=== PATIENT | male | born 1965 | race Caucasian/White ===

== ENCOUNTER 2018-06-10 20:05 | Emergency (ER) | payer BC ==
[2018-06-10 20:34] VITALS: BP 126/78; PULSE 67; TEMP 98.4; BMI 30.6
--- NOTE | 2018-06-10 20:36 | PDOC ---
History of Present Illness - General History Source: Patient Exam Limitations: No Limitations - History of Present Illness Initial Comments: 06/10/18 22:21 Patient is a 52 year old male with a significant past medical history of Type 2 diabetes. who presents to the ED with complaints of diarrhea, that began x3 weeks ago. Patient reports experiencing sudden diarrhea, while in [place] x3 weeks ago. He reports seeing physician in [place] and was prescribed antibiotics and probiotics with minimal relief. Patient reports calling his PCP when he returned to the [facility] who advised him to take imodium and pepto bismol and to go to the ED if the diarrhea began to increase in severity. He reports experiencing slight relief for x1 week, but [facility] symptoms returned sunday evening and sunday morning stating he began to experience x5 episodes of diarrhea per day, prompting him to come into the ED for further evaluation. Patient reports experiencing associated symptoms of abdominal pain and increased thirst, secondary to diarrhea. Denies chest pain, sob. Denies nausea, vomiting. Denies contact with sick individuals, out of state travelling. . Denies dysuria, hematuria, Denies constipation. Denies any other symptoms. Allergies: NKDA Social history: Lives with . No smoking. No alcohol. No illicit drugs. Surgical history: Colonoscopy PMD: Dr. Morejon <Yimi Ross - Last Filed: 06/10/18 22:21> <Ca Harman - Last Filed: 06/11/18 03:46> - General Chief Complaint: Diarrhea Stated Complaint: DIARRHEA X 2 WEEKS Time Seen by Provider: 06/10/18 20:08 Past History <Yimi Ross - Last Filed: 06/10/18 22:21> - Past Medical History Diabetes: Yes Kidney Stones: Yes - Suicide/Smoking/Psychosocial Hx Smoking History: Never smoked Hx Alcohol Use: Yes (social) Drug/Substance Use Hx: No <Ca Harman - Last Filed: 06/11/18 03:46> - Past Medical History Allergies/Adverse Reactions: Allergies Allergy/AdvReac Type Severity Reaction Status Date / Time No Known Allergies Allergy Verified 06/10/18 20:08 Home Medications: Ambulatory Orders Enalapril Maleate [Vasotec -] 2.5 mg PO DAILY 07/12/14 Linagliptin/Metformin HCl [Jentadueto 2.5 mg-1000 mg Tab] 1 each PO DAILY 10/19/ 14 Nateglinide [Starlix (Nf) -] 120 mg PO TID 07/12/14 Dapagliflozin Propanediol [Farxiga] 5 mg PO DAILY 06/10/18 Metformin HCl [Metformin HCl ER] 500 mg PO DAILY 06/10/18 Review of Systems - Review of Systems Able to Perform ROS?: Yes Comments:: 06/10/18 22:21 GENERAL/CONSTITUTIONAL: No fever or chills. No weakness. HEAD, EYES, EARS, NOSE AND THROAT: No change in vision. No ear pain or discharge. No sore throat. CARDIOVASCULAR: No chest pain or shortness of breath. RESPIRATORY: No cough, wheezing, or hemoptysis. GASTROINTESTINAL: +diarrhea. No nausea, vomiting, or constipation. GENITOURINARY: No dysuria, frequency, or change in urination. MUSCULOSKELETAL: No joint or muscle swelling or pain. No neck or back pain. SKIN: No rash NEUROLOGIC: No headache, vertigo, loss of consciousness, or change in strength/ sensation. ENDOCRINE: No increased thirst. No abnormal weight change. HEMATOLOGIC/LYMPHATIC: No anemia, easy bleeding, or history of blood clots. ALLERGIC/IMMUNOLOGIC: No hives or skin allergy. <Yimi Ross - Last Filed: 06/10/18 22:21> *Physical Exam - Vital Signs Last Vital Signs Temp Pulse Resp BP Pulse Ox 98.4 F 67 16 126/78 99 06/10/18 20:31 06/10/18 20:31 06/10/18 20:31 06/10/18 20:31 06/10/18 20:31 - Physical Exam Comments: 06/10/18 22:21 GENERAL: Awake, alert, and fully oriented, in no acute distress HEAD: No signs of trauma EYES: PERRLA, EOMI, sclera anicteric, conjunctiva clear ENT: Auricles normal inspection, hearing grossly normal, nares patent, oropharynx clear without exudates. Moist mucosa NECK: Normal ROM, supple, no lymphadenopathy, JVD, or masses LUNGS: Breath sounds equal, clear to auscultation bilaterally. No wheezes, and no crackles HEART: Regular rate and rhythm, normal S1 and S2, no murmurs, rubs or gallops ABDOMEN: +Mild RLQ tenderness. Soft, normoactive bowel sounds. No guarding, no rebound. No masses EXTREMITIES: Normal range of motion, no edema. No clubbing or cyanosis. No cords, erythema, or tenderness NEUROLOGICAL: Cranial nerves II through XII grossly intact. Normal speech, normal gait SKIN: Warm, Dry, normal turgor, no rashes or lesions noted. <Yimi Ross - Last Filed: 06/10/18 22:21> ED Treatment Course - LABORATORY CBC & Chemistry Diagram: 06/10/18 20:40 06/10/18 20:40 - ADDITIONAL ORDERS Additional order review: Laboratory Results 06/10/18 06/10/18 21:10 20:40 Sodium 139 Potassium 4.4 Chloride 102 Carbon Dioxide 28 Anion Gap 9 BUN 20 H Creatinine 0.9 Creat Clearance w eGFR > 60 Random Glucose 154 H D Calcium 8.5 Total Bilirubin 0.5 AST 18 D ALT 22 D Alkaline Phosphatase 80 Total Protein 6.8 Albumin 3.6 Urine Color Yellow Urine Appearance Clear Urine pH 5.5 Ur Specific [place] 1.025 Urine Protein Negative Urine Glucose (UA) 3+ H Urine Ketones Negative Urine Blood Negative Urine Nitrite Negative Urine Bilirubin Negative Urine Urobilinogen 0.2 Ur Leukocyte Esterase Negative 06/10/18 20:40 RBC 4.69 MCV 81.8 MCHC 32.6 RDW 12.9 MPV 8.1 Neutrophils % 33.7 L D Lymphocytes % 56.7 H D Monocytes % 6.6 Eosinophils % 2.2 Basophils % 0.8 - Medications Given in the ED: ED Medications Discontinued Medications Generic Name Dose Route Start Last Admin Trade Name Freq PRN Reason Stop Dose Admin Sodium Chloride 1,000 mls @ 1,000 mls/hr 06/10/18 21:02 06/10/18 21:13 Normal Saline - IV 06/10/18 22:01 1,000 mls/hr ASDIR STA Administration <Yimi Ross - Last Filed: 06/10/18 22:21> - LABORATORY CBC & Chemistry Diagram: 06/10/18 20:40 06/10/18 20:40 <Ca Harman - Last Filed: 06/11/18 03:46> Progress Note - Progress Note Progress Note: Documentation has been prepared under my direction and personally reviewed by me in its entirety. I attest that this documented accurately reflects all work, treatment, procedures and medical decision making performed by me. <Ca Harman - Last Filed: 06/11/18 03:46> Medical Decision Making - Medical Decision Making As noted above, this 52-year-old man presents with a few week history of diarrhea; illness began when he was visiting [place] last month. After initial improvement, he had recurrence over the last few days. Today, he had only 2 loose stools but came to the emergency room because of the recurrence of the diarrhea and persistence of lower abdominal pain. Exam as noted with mild right lower quadrant tenderness without peritoneal signs. Patient was advised to come to the emergency room if he had recurrence of the diarrhea so that further workup, including CT, could be performed. Laboratory evaluation is essentially normal except for mild prerenal azotemia. There is no elevation of white blood cell count and electrolyte levels are normal. Because of the right lower quadrant tenderness, abdominal/pelvic CT was performed to rule out acute appendicitis. CT interpreted by Dr. Landon of the radiology staff: No evidence of acute appendicitis. However, there is generalized intra-abdominal lymph node enlargement especially within the right lower quadrant and central mesentery. There is also development of splenomegaly. Although the these findings may be reactive secondary to present illness, these findings are suspicious for lymphoma. Call was placed to Dr. Kunal Morejon but answering service stated that he was signed out to [facility] hospitalist service. Since there was no need for hospitalization in this patient who is neither dehydrated/vomiting or in significant pain, [facility] hospitalist service was not called and patient was advised strongly to follow up within the very near future with Dr. Morejon. <Ca Harman - Last Filed: 06/11/18 03:46> *DC/Admit/Observation/Transfer - Attestations Scribe Attestion: 06/10/18 22:22 Documentation prepared by Yimi Ross, acting as medical appointment scheduler for Ca Harman MD. <Yimi Ross - Last Filed: 06/10/18 22:21> <Ca Harman - Last Filed: 06/11/18 03:46> Diagnosis at time of Disposition: Diarrhea Qualifiers: Diarrhea type: unspecified type Qualified Code(s): R19.7 - Diarrhea, unspecified - Discharge Dispostion Disposition: HOME Condition at time of disposition: Stable - Referrals Referrals: Kunal Morejon MD [Primary Care Provider] - Call tomorrow - Patient Instructions Printed Discharge Instructions: Diarrhea Additional Instructions: Continue drinking plenty of fluids as discussed Continue Pepto-Bismol or Imodium as needed after each loose stool Avoid lactose containing products Call tomorrow as discussed Return to ER if you have worsening pain/vomiting/fever - Post Discharge Activity
[2018-06-10 20:53] LABS: BASO % 0.8 % (0-2.0); EOS % 2.2 % (0-4.5); HEMATOCRIT 38.3 % (35.4-49); HEMOGLOBIN 12.5 GM/dl (11.7-16.9); LYMPH % 56.7 % (8-40); MCH 26.7 pg (25.7-33.7); MCHC 32.6 g/dl (32.0-35.9); MEAN CELL VOLUME 81.8 fl (80-96); MEAN PLT VOLUME 8.1 fl (7.5-11.1); MONO % 6.6 % (3.8-10.2); NEUT % 33.7 % (42.8-82.8); PLATELET COUNT 174 K/MM3 (134-434); RBC 4.69 M/mm3 (4.00-5.60); RDW 12.9 % (11.9-15.9); WHITE BLOOD COUNT 7.3 K/mm3 (4.0-10.8)
[2018-06-10 21:01] LABS: ALBUMIN 3.6 g/dl (3.5-5.0); ALK PHOS 80 U/L (32-92); ANION GAP 9 MMOL/L (8-16); BILIRUBIN,TOTAL 0.5 mg/dl (0.2-1.0); BLOOD UREA NITROGEN 20 mg/dl (7-18); CALCIUM 8.5 mg/dl (8.4-10.2); CHLORIDE 102 mmol/L (98-107); CO2 28 mmol/L (22-28); CREATININE 0.9 mg/dl (0.6-1.3); GLUCOSE,RANDOM 154 mg/dl (74-106); POTASSIUM 4.4 mmol/L (3.5-5.1); SGOT/AST 18 U/L (10-42); SGPT/ALT 22 U/L (10-40); SODIUM 139 mmol/L (136-145); TOT PROT 6.8 g/dl (6.4-8.3)
[2018-06-10] MEDS ORDERED: SODIUM CHLORIDE 1,000 ML IV STA (21:02)
[2018-06-10 21:21] LABS: PH,URINE 5.5 (4.5-8); URINE APPEARANCE Clear; URINE BILIRUBIN Negative (NEGATIVE); URINE COLOR Yellow; URINE GLUCOSE (UA) 3+ (NEGATIVE); URINE KETONE Negative (NEGATIVE); URINE LEUK ESTERASE Negative (NEGATIVE); URINE NITRITE Negative (NEGATIVE); URINE PROTEIN Negative (NEGATIVE); URINE UROBILINOGEN 0.2 (0.2-1.0)
== END 2018-06-10 23:43 | disposition home or self-care (01) ==
LOC: FER 20:05
PROC: 3E0337Z Introduction of Electrolytic and Water Balance Substance into Peripheral Vein, Percutaneous Approach (ICD-10-PCS; principal; 2018-06-10)
DX: R19.7 Diarrhea, unspecified (principal)
CPT/HCPCS: 36415; 74177-TC; 80053; 81003; 85025; 99281-25; J7030

== ENCOUNTER → 2018-07-22 | Day surgery (SDC) | payer BC ==
--- NOTE | 2018-08-01 16:16 | PATH ---
Surgical Pathology Report Patient Name: CECILLE JOHNSON [facility]. Rec. #: [id number] /Age/Gender: 1965 (Age: 52) / M Account: [id number] Location: [facility] Taken: 07/22/2018 Received: 07/22/2018 Reported: 08/01/2018 Physicians: Darci Guthrie M.D. Specimen(s) Received LEFT AXILLARY CORE BIOPSY Clinical History Ultrasound findings: suspicious Mantle cell lymphoma Final Diagnosis AXILLARY LYMPH NODE, LEFT, NEEDLE CORE BIOPSY: CD5+ B-CELL LYMPHOMA, CONSISTENT WITH MANTLE CELL LYMPHOMA. Comment: The specimen consists of needle core shaped fragments of lymphoid tissue. Normal lymph node architecture is not appreciated. There is a diffuse proliferation of small-medium sized lymphocytes with condensed chromatin, oval to slightly irregular nuclei, and scant cytoplasm. Increased large cells are not seen. Immunostains demonstrate B-cell predominance with aberrant CD5, CD23, and BCL-1 (dim) expression. The proliferative rate is very low (less than 5%). FISH studies will be performed for confirmation, and the result will be reported separately. This case was sent to Dr. Haile Alex from [facility], [place], [place] ([id number]) the diagnosis above reflects his opinion. Immunostains performed: CD20...Positive PAX-5..Positive CD3...T-cells positive CD5...Positive CD10..Negative CD23...Positive (focal, variable intensity) RODNEY..Negative BCL-1..Positive (dim) BCL-2..Positive BCL-6..Negative MUM-1...Focally positive (dim) Ki67...Small subset (less than 5%) positive AE1/AE3..Negative [place] (INGE)..Subset of plasma cells positive Lambda (INGE)..Subset of plasma cells positive See Emerge report for additional details. Electronically Signed Maria E Mccullough M.D. Gross Description Received in formalin labeled "left axilla biopsy," is a 2.1 x 1.5 x 0.3 cm aggregate of multiple betancourt-yellow, irregular to cylindrical portions of fibroadipose tissue admixed with blood clot. The formalin is filtered and the specimen is entirely submitted in one cassette. Time to formalin fixation: 2 minutes Total formalin fixation time: Approximately 29 hours. 07/23/2018 [place]07/23/2018
== END | disposition home or self-care (01) ==
LOC: FRADUS-SUR 11:53
PROVIDERS: ATTEND Internal Medicine Hematology & Oncology
PROC: 07B63ZX Excision of Left Axillary Lymphatic, Percutaneous Approach, Diagnostic (ICD-10-PCS; principal; 2018-07-22)
PROC: BH47ZZZ Ultrasonography of Upper Extremity (ICD-10-PCS; 2018-07-22)
DX: C85.14 Unspecified B-cell lymphoma, lymph nodes of axilla and upper limb (principal); R59.9 Enlarged lymph nodes, unspecified
CPT/HCPCS: 19083; 38505; 87899; 88305-TC; A4648

== ENCOUNTER 2018-09-04 09:14 | Day surgery (SDC) | payer BC ==
[2018-08-29 09:59] VITALS: BMI 32.0
[2018-09-04 10:00] VITALS: TEMP 98.2
[2018-09-04] MEDS ORDERED: PROPOFOL 20 ML ONE ×2 (10:07)
[2018-09-04] MEDS ORDERED: LIDOCAINE HCL/PF 2% SDV 5ML VIAL ONE (10:19)
[2018-09-04 13:06] VITALS: BP 115/63; PULSE 69
--- NOTE | 2018-09-05 17:20 | PATH ---
Surgical Pathology Report Patient Name: CECILLE JOHNSON [facility]. Rec. #: [id number] /Age/Gender: 1965 (Age: 52) / M Account: [id number] Location: [facility] Taken: 09/04/2018 Received: 09/04/2018 Reported: 09/05/2018 Physicians: Maria E Kincaid M.D. Specimen(s) Received A: BX DUODENUM 2ND PORTION B: BX ANTRUM C: BX GE JUNCTION Clinical History Anemia, diarrhea Postoperative diagnosis: Gastritis, diverticulosis Final Diagnosis A. DUODENUM, SECOND PORTION, BIOPSY: SMALL BOWEL MUCOSA WITH PROMINENT LYMPHOID AGGREGATES. B. STOMACH, ANTRUM, BIOPSY: GASTRIC ANTRAL MUCOSA WITH MILD CHRONIC GASTRITIS. IMMUNOHISTOCHEMICAL STAIN FOR H. PYLORI IS NEGATIVE. C. GE JUNCTION, BIOPSY: GASTRIC CARDIAC TYPE MUCOSA WITH MILD CHRONIC GASTRITIS. IMMUNOHISTOCHEMICAL STAIN FOR H. PYLORI IS NEGATIVE. NO SQUAMOUS MUCOSA, INTESTINAL METAPLASIA, OR DYSPLASIA IDENTIFIED. Electronically Signed Maria E Mccullough M.D. Gross Description A. Received in formalin, labeled "biopsy second portion of duodenum" is a betancourt, irregular portion of soft tissue measuring 0.3 cm. in greatest dimension. The specimen is submitted in toto in one cassette. B. Received in formalin, labeled "biopsy antrum" is a betancourt, irregular portion of soft tissue measuring 0.4 cm. in greatest dimension. The specimen is submitted in toto in one cassette. C. Received in formalin, labeled "biopsy GE junction" is a betancourt, irregular portion of soft tissue measuring 0.4 cm. in greatest dimension. The specimen is submitted in toto in one cassette. 09/04/[address] [facility]09/04/2018
== END 2018-09-04 13:15 | disposition home or self-care (01) ==
LOC: FASU-ENDO 09:14
PROVIDERS: ATTEND Internal Medicine Gastroenterology
PROC: 0DB98ZX Excision of Duodenum, Via Natural or Artificial Opening Endoscopic, Diagnostic (ICD-10-PCS; 2018-09-04)
PROC: 0DB68ZX Excision of Stomach, Via Natural or Artificial Opening Endoscopic, Diagnostic (ICD-10-PCS; 2018-09-04)
PROC: 0DB48ZX Excision of Esophagogastric Junction, Via Natural or Artificial Opening Endoscopic, Diagnostic (ICD-10-PCS; 2018-09-04)
PROC: 0DJD8ZZ Inspection of Lower Intestinal Tract, Via Natural or Artificial Opening Endoscopic (ICD-10-PCS; principal; 2018-09-04 10:45)
DX: D64.9 Anemia, unspecified (principal); K57.30 Diverticulosis of large intestine without perforation or abscess without bleeding; K64.8 Other hemorrhoids; K31.89 Other diseases of stomach and duodenum; K29.50 Unspecified chronic gastritis without bleeding
CPT/HCPCS: 82962; 88305-TC; 88342-TC

== ENCOUNTER 2020-08-25 17:30 | Emergency (ER) | payer BC | END 2020-08-25 19:56 | disposition home or self-care (01) | LOC: JVIRT 17:30 | DX: Z03.818 Encounter for observation for suspected exposure to other biological agents ruled out (principal); J02.9 Acute pharyngitis, unspecified | CPT/HCPCS: C9803; G2012-GT; U0003 ==

== ENCOUNTER 2021-04-30 17:21 | Emergency (ER) | payer BC ==
[2021-04-30 17:32] VITALS: BP 125/83; PULSE 78; TEMP 98.3; BMI 36.9
[2021-04-30] MEDS ORDERED: DIPHTH,PERTUSS(ACELL),TET 0.5 ML DISP.SYRIN IM ONE ×2 (17:35→17:39)
== END 2021-04-30 17:47 | disposition home or self-care (01) ==
LOC: FER 17:21
PROC: 3E0234Z Introduction of Serum, Toxoid and Vaccine into Muscle, Percutaneous Approach (ICD-10-PCS; principal; 2021-04-30)
PROC: 0HQGXZZ Repair Left Hand Skin, External Approach (ICD-10-PCS; principal; 2021-04-30)
DX: S61.012A Laceration without foreign body of left thumb without damage to nail, initial encounter (principal); W26.0XXA Contact with knife, initial encounter
CPT/HCPCS: 90715; 99282-25

== ENCOUNTER 2022-02-01 09:59 | Day surgery (SDC) | payer BC ==
[2022-01-18 15:59] VITALS: BMI 36.6
[2022-02-01 12:31] VITALS: TEMP 98
[2022-02-01 12:34] VITALS: BP 122/73; PULSE 76
== END 2022-02-01 13:13 | disposition home or self-care (01) ==
LOC: FASU-ENDO 09:59
PROVIDERS: ATTEND Internal Medicine Gastroenterology
PROC: 0DB98ZX Excision of Duodenum, Via Natural or Artificial Opening Endoscopic, Diagnostic (ICD-10-PCS; 2022-02-01)
PROC: 0DB68ZX Excision of Stomach, Via Natural or Artificial Opening Endoscopic, Diagnostic (ICD-10-PCS; 2022-02-01)
PROC: 0DB48ZX Excision of Esophagogastric Junction, Via Natural or Artificial Opening Endoscopic, Diagnostic (ICD-10-PCS; 2022-02-01)
PROC: 0DJD8ZZ Inspection of Lower Intestinal Tract, Via Natural or Artificial Opening Endoscopic (ICD-10-PCS; principal; 2022-02-01 11:44)
DX: D64.9 Anemia, unspecified (principal); K64.1 Second degree hemorrhoids; K57.30 Diverticulosis of large intestine without perforation or abscess without bleeding; K21.00 Gastro-esophageal reflux disease with esophagitis, without bleeding; K31.9 Disease of stomach and duodenum, unspecified
CPT/HCPCS: 82962; 88305-TC; 88342-TC

== ENCOUNTER 2022-12-08 19:00 | Emergency (ER) | payer BC ==
[2022-12-08 19:10] VITALS: BP 125/83; PULSE 68; RESP 15; TEMP 98.6; BMI 36.8
== END 2022-12-08 20:15 | disposition home or self-care (01) ==
LOC: FER 19:00
DX: J06.9 Acute upper respiratory infection, unspecified (principal); R05.1 Acute cough; Z20.822 Contact with and (suspected) exposure to COVID-19
CPT/HCPCS: 0241U-QW; 71046-TC-FY; 99284-25

== ENCOUNTER 2023-05-31 17:36 | Emergency (ER) | payer BC ==
[2023-05-31 18:10] VITALS: BP 151/90; PULSE 78; RESP 18; TEMP 98; BMI 36.5
== END 2023-05-31 19:18 | disposition home or self-care (01) ==
LOC: FER 17:36
DX: R05.9 Cough, unspecified (principal); R51.9 Headache, unspecified; R07.0 Pain in throat; J06.9 Acute upper respiratory infection, unspecified; Z20.822 Contact with and (suspected) exposure to COVID-19
CPT/HCPCS: 0241U-QW; 71046-TC-FY; 87651; 99284-25

== ENCOUNTER 2023-09-10 11:59 | Emergency (ER) | payer BC ==
[2023-09-10 12:19] VITALS: BP 155/93; PULSE 86; RESP 18; TEMP 100.1; BMI 21.6
== END 2023-09-10 14:08 | disposition home or self-care (01) ==
LOC: FER 11:59
DX: R05.9 Cough, unspecified (principal); R09.81 Nasal congestion; J02.9 Acute pharyngitis, unspecified; M79.10 Myalgia, unspecified site; J06.9 Acute upper respiratory infection, unspecified; U07.1 COVID-19
CPT/HCPCS: 0241U-QW; 71046-TC-FY; 87651; 99284-25

== ENCOUNTER 2023-11-03 15:29 | Emergency (ER) | payer BC ==
[2023-11-03 15:48] VITALS: BP 128/74; PULSE 81; RESP 18; TEMP 98.6; BMI 36.9
[2023-11-03 18:34] LABS: THROAT:GRP A STREP NOT DETECTED (NOTDETECTED)
== END 2023-11-03 16:33 | disposition home or self-care (01) ==
LOC: FER 15:29
DX: J02.9 Acute pharyngitis, unspecified (principal); R53.83 Other fatigue; Z20.822 Contact with and (suspected) exposure to COVID-19
CPT/HCPCS: 0241U-QW; 87651; 99283-25

== ENCOUNTER 2024-04-07 20:12 | Observation (INO) | payer BC ==
[2024-04-07 20:29] VITALS: BMI 38.3
[2024-04-07] MEDS ORDERED: VANCOMYCIN 1,000 MG VIAL (RESTRICTED TO ID ONLY) ONE (22:05)
[2024-04-07] MEDS: VANCOMYCIN 1,000 MG in DEXTROSE 5%-WATER - 250 ML IVPB ONE (22:10)
[2024-04-07 22:14] LABS: HEMATOCRIT 39.9 % (35.4-49); MCH 28.1 pg (25.7-33.7); MCHC 32.5 g/dl (32.0-35.9); MEAN CELL VOLUME 86.3 fl (80-96); MEAN PLT VOLUME 8.3 fl (7.5-11.1); RBC 4.62 10^6/uL (4.00-5.60); RDW 13.6 % (11.9-15.9); WHITE BLOOD COUNT 5.1 10^3/uL (4.0-10.8)
[2024-04-07 22:32] LABS: PLATELET ESTIMATE SLT DECREASE
[2024-04-07 22:33] LABS: ALBUMIN 4.2 g/dl (3.4-5.0); BILIRUBIN,TOTAL 0.3 mg/dl (0.2-1); CALCIUM 9.1 mg/dl (8.5-10.1); CREATININE 1.1 mg/dl (0.6-1.3); TOT PROT 5.6 g/dl (6.4-8.2)
[2024-04-08 01:54] VITALS: RESP 18; TEMP 98.1
[2024-04-08] MEDS: LEVOTHYROXINE NA 25 MCG TABLET (FP) PO SCH (06:37)
[2024-04-08 07:57] LABS: CALCIUM 8.4 mg/dl (8.5-10.1); CREATININE 0.8 mg/dl (0.6-1.3); POTASSIUM 4.1 mmol/L (3.5-5.1)
[2024-04-08] MEDS: TAMSULOSIN HCL 0.4 MG CAP PO SCH (08:00)
[2024-04-08 09:28] LABS: BASO % 0.8 % (0-2.0); EOS % 4.1 % (0-4.5); HEMATOCRIT 38.3 % (35.4-49); HEMOGLOBIN 12.9 GM/dL (11.7-16.9); LYMPH % 27.1 % (8-40); MCH 28.4 pg (25.7-33.7); MCHC 33.6 g/dl (32.0-35.9); MEAN CELL VOLUME 84.5 fl (80-96); MEAN PLT VOLUME 8.2 fl (7.5-11.1); MONO % 10.8 % (3.8-10.2); NEUT % 57.2 % (42.8-82.8); PLATELET COUNT 124 10^3/uL (134-434); RBC 4.53 M/mm3 (4.00-5.60); RDW 13.3 % (11.9-15.9); WHITE BLOOD COUNT 5.1 K/mm3 (4.0-10.0)
[2024-04-08] MEDS: PANTOPRAZOLE 20 MG TABLET PO SCH (09:48)
[2024-04-08] MEDS: VANCOMYCIN PREMIX 1.5 GM 1,500 MG/300 ML BAG IVPB SCH (09:48)
[2024-04-08] MEDS: ENALAPRIL MALEATE 10 MG TABLET PO SCH (09:48)
[2024-04-08] MEDS: INSULIN PUMP CART AUTOMATED BT SQ SCH (09:58)
[2024-04-08] MEDS: [UNRECOGNIZED DRUG - OTHER] SQ SCH (09:58)
[2024-04-08] MEDS ORDERED: VANCOMYCIN HCL 1,500 MG in DEXTROSE 5%-WATER - 250 ML IVPB SCH (10:00)
[2024-04-08 10:44] VITALS: BP 144/69; PULSE 61
== END 2024-04-08 13:25 | disposition home or self-care (01) ==
LOC: FER 20:12 → FM/S 04-08 01:06
PROVIDERS: ADMIT Internal Medicine
DX: L03.115 Cellulitis of right lower limb (principal); I10 Essential (primary) hypertension; E78.5 Hyperlipidemia, unspecified; E11.9 Type 2 diabetes mellitus without complications; E66.9 Obesity, unspecified; N40.0 Benign prostatic hyperplasia without lower urinary tract symptoms; E03.9 Hypothyroidism, unspecified; Z85.72 Personal history of non-Hodgkin lymphomas
CPT/HCPCS: 36415; 71045-TC-FY; 80048; 80053; 82962; 83605; 85025; 85027; 87040; 93971-TC; 99285-25; G0378

== ENCOUNTER 2024-04-20 20:54 | Emergency (ER) | payer BC ==
[2024-04-20 21:32] VITALS: BP 148/67; PULSE 97; RESP 20; BMI 38.3
[2024-04-20] MEDS ORDERED: IBUPROFEN 600 MG TABLET (FP) PO ONE (21:34)
[2024-04-20] MEDS: IBUPROFEN 600 MG TABLET (FP) PO ONE (21:41)
[2024-04-20] MEDS: SODIUM CHLORIDE 0.9% 500 ML INFUS.BAG IV ONE (21:41)
[2024-04-20 21:59] LABS: HEMOGLOBIN 13.2 G/dL (11.7-16.9); MCH 28.4 pg (25.7-33.7); MCHC 32.9 g/dl (32.0-35.9); MEAN CELL VOLUME 86.1 fl (80-96); MEAN PLT VOLUME 9.5 fl (7.5-11.1); RBC 4.64 10^6/uL (4.00-5.60); RDW 13.8 % (11.9-15.9); WHITE BLOOD COUNT 3.3 10^3/uL (4.0-10.8)
[2024-04-20 22:03] LABS: PLATELET COUNT 91.1 10^3/uL (134-434)
[2024-04-20 22:25] LABS: PLATELET ESTIMATE SLT DECREASE
[2024-04-20 22:41] LABS: EPITHELIAL CELLS 0-5 /hpf
[2024-04-20 22:53] LABS: ALBUMIN 3.7 g/dl (3.4-5.0); ALK PHOS 62 U/L (45-117); ANION GAP 8 mmol/L (4-13); BILIRUBIN,TOTAL 0.6 mg/dl (0.2-1); CALCIUM 8.1 mg/dl (8.5-10.1); CHLORIDE 105 mmol/L (98-107); CO2 25 mmol/L (21-32); CREATININE 0.9 mg/dl (0.6-1.3); GLUCOSE,RANDOM 168 mg/dl (74-106); POTASSIUM 3.8 mmol/L (3.5-5.1); SGOT/AST 30 U/L (15-37); SGPT/ALT 29 U/L (7-52); SODIUM 138 mmol/L (136-145); TOT PROT 4.9 g/dl (6.4-8.2)
[2024-04-20 23:07] VITALS: TEMP 98.2
== END 2024-04-20 23:05 | disposition home or self-care (01) ==
LOC: FER 20:54
DX: R50.9 Fever, unspecified (principal); B34.9 Viral infection, unspecified; R51.9 Headache, unspecified; Z20.822 Contact with and (suspected) exposure to COVID-19
CPT/HCPCS: 0241U-QW; 36415; 70450-TC; 71045-TC-FY; 80053; 81003; 81015; 82962; 84484; 85027; 87040; 93005; 99285-25